=== PATIENT | male | born 1965 | race African-American/Black ===

== ENCOUNTER 2021-06-28 08:39 | Observation (INO) | payer SELFPAY ==
[~2021-06-28] VITALS: Ht 176.5 cm; Wt 63.0 kg
[~2021-06-28 08:39] MED LIST: NAPR-683 PO; PEG4000S8 PO; POTA20TA84 PO
[2021-06-28] MEDS ORDERED: IV NORMAL SALINE 1000ML BAG 1,000 ML IV SCH (09:30)
--- NOTE | 2021-06-28 09:32 | PHYS DOC ---
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 He states anytime he takes to take a drink of water cannot keep it down. He states this happens when he has been off of his omeprazole. He states he has had this exact pain before. He denies chest pain, shortness of breath, fever, cough, diarrhea, constipation, blood in his vomit, urinary symptom, syncope, dizziness, headache, numbness or tingling, focal weakness. He does have a history of a stroke with only left 2 fingers tingling for deficit, hypertension, hiatal hernia, GERD, smoking, marijuana, PCP, bradycardia. Patient is not vaccinated for Covid. 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 [] Eyes: Denies change in visual acuity. [] HENT: Denies nasal congestion or sore throat. [] Respiratory: Denies cough or shortness of breath. [] Cardiovascular: Denies chest pain or edema. [] GI: +Epigastric abdominal pain, +nausea, +vomiting, denies bloody stools or diarrhea. [] : Denies dysuria. [] Musculoskeletal: Denies back pain or joint pain. [] Integument: Denies rash. [] Neurologic: Denies headache, focal weakness or sensory changes. [] Endocrine: Denies polyuria or polydipsia. [] Lymphatic: Denies swollen glands. [] Psychiatric: Denies depression or anxiety. 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 [] HENT: Normocephalic, atraumatic, bilateral external ears normal, oropharynx moist, no oral exudates, nose normal. [] Eyes: PERRLA, EOMI, conjunctiva normal, no discharge. [] Neck: Normal range of motion, no tenderness, supple, no stridor. [] Cardiovascular:Heart rate regular rhythm, no murmur [] Lungs & Thorax: Bilateral breath sounds clear to auscultation [] Abdomen: Bowel sounds normal, soft, Epigastric tenderness, no masses, no pulsatile masses. [] Skin: Warm, dry, no erythema, no rash. [] Back: No tenderness, no CVA tenderness. [] Extremities: No tenderness, no cyanosis, no clubbing, ROM intact, no edema. [] Neurologic: Alert and oriented X 3, normal motor function, normal sensory function, no focal deficits noted. [] Psychologic: Affect normal, judgement normal, mood normal. [] ([facility] HYDROELECTRIC MECHANIC) Current Patient Data: Vital Signs: Vital Signs Date Time Temp Pulse Resp B/P (MAP) Pulse Ox O2 Delivery O2 Flow Rate FiO2 06/28/21 09:15 97.5 53 16 172/93 (119) 99 Room Air 97.5 ([facility] EKG: EK and read by Dr. Motta as sinus bradycardia and no STEMI ([facility]) Radiology/Procedures: Radiology/Procedures: [][facility] [address] [place] [address] IMAGING REPORT Signed PATIENT: YARA GORMAN LACCOUNT: [id number] : 1965 LOCATION: ER AGE: 55 SEX: M EXAM STATUS: REG ER ORD. PHYSICIAN: JACQUELINE BEAULIEU APRN REASON: EPIGASTRIC PAIN, VOMITING PROCEDURE: PORTABLE CHEST 1V XR CHEST 1V 06/28/2021 9:20 AM INDICATION: Epigastric pain, vomiting COMPARISON: 06/06/2019 TECHNIQUE: Portable frontal view of the chest is provided. FINDINGS: The cardiomediastinal silhouette is within normal limits. Lungs are clear. There are no significant pleural effusions. There is no pulmonary vascular congestion. No pneumothorax. No suspicious osseous abnormality. IMPRESSION: There is no acute cardiopulmonary process. Electronically signed by: Sharda Nunes MD (06/28/2021 9:37 AM) [id number] DICTATED and SIGNED BY: SHARDA NUNES MD DATE: 06/28/21 [id number] [facility] [address] [place] [address] IMAGING REPORT Signed PATIENT: YARA GORMAN LACCOUNT: [id number] : 1965 LOCATION: ER AGE: 55 SEX: M EXAM STATUS: REG ER ORD. PHYSICIAN: JACQUELINE BAEULIEU APRN REASON: tenderness, vomting PROCEDURE: CT ABD PELV W/ IV CONTRST ONLY INDICATION: Reason: tenderness, vomting / Spl. Instructions: IV omni 300 75 mls / History: COMPARISON: June 2019 TECHNIQUE: Axial CT images were obtained through the abdomen and pelvis with intravenous contrast. One or more of the following individualized dose reduction techniques were utilized for this examination: 1. Automated exposure control; 2. Adjustment of the mA and/or kV according to patient size; 3. Use of iterative reconstruction technique. FINDINGS: Vascular: Scattered calcific atherosclerosis. Hepatobiliary: Liver appears low density. This can be seen with fatty infiltration. The liver is also enlarged. Pancreas: No peripancreatic edema. Spleen: Spleen is small in size with calcified granulomas. Renal: No hydronephrosis. Bladder: Minimal urine within with mild prominence of the wall. Gastrointestinal: No dilated loops of bowel to suggest obstruction. The appendix is not well seen. There is a tubular structure seen adjacent to the cecum measuring 5 mm but difficult to tell if this is secondary to a vessel in the area or a nondilated appendix. Degenerative changes the spine with multilevel central canal and neural foraminal stenosis. This includes some disc protrusions as well as osteophyte formation at the vertebral body endplates with superimposed ligamentum flavum and facet hypertrophy IMPRESSION: * No evidence of bowel obstruction or hydronephrosis. * Liver appears enlarged and low density. Nonspecific but can be seen with fatty infiltration. * Calcific atherosclerosis. Electronically signed by: Windy Corbett MD (06/28/2021 12:39 PM) DESKTOP- [id number] DICTATED and SIGNED BY: WINDY CORBETT MD DATE: 06/28/21 [id number] (JACQUELINE BEAULIEU APRN) Course & Med Decision Making: Course & Med Decision Making Pertinent Labs and Imaging studies reviewed. (See chart for details) See HPI. Alert and oriented x4. Ambulatory steady gait. Speaks in full clear sentences. Skin pink warm and dry. Patient has epigastric tenderness but otherwise abdomen is soft nontender. Speaks in full clear sentences. Blood work generally unremarkable. Patient however cannot keep down any fluids. He was p.o. challenged here and vomited. Patient still having abdominal pain. He is given 8 mg of Zofran, Pepcid. He is also given 10 mg of Reglan. He is given 50meq of fentanyl. Patient is given 2 L of normal saline. CT abdomen pelvis shows no acute findings. Chest x-ray shows no acute findings. Patient admitted to hospitalist. [] (JACQUELINE BEAULIEU APRN) Dragon Disclaimer: Chance Disclaimer: This electronic medical record was generated, in whole or in part, using a voice recognition dictation system. (JACQUELINE BEAULIEU APRN) Departure Departure Impression: Primary Impression: Intractable vomiting Qualified Codes: R11.10 - Vomiting, unspecified Additional Impressions: Epigastric pain Marijuana use Disposition: ADMITTED INPATIENT Admitting Physician: ALEX (JACQUELINE BEAULIEU APRN) Condition: STABLE Referrals: NO PCP (PCP) Attending Signature Attending Signature I have reviewed the PA/INFORMATION SYSTEMS ADMINISTRATOR's note and plan of care. I was available for consult ation as needed during the patient's visit in the emergency department. I agree with the clinical impression, plan, and disposition. (PENELOPE MOTTA DO) JACQUELINE BEAULIEU APRN Jun 28, 2021 09:31 PENELOPE MOTTA DO Jun 29, 2021 13:59
--- NOTE | 2021-06-28 09:39 | RAD ---
XR CHEST 1V 06/28/2021 9:20 AM INDICATION: Epigastric pain, vomiting COMPARISON: 06/06/2019 TECHNIQUE: Portable frontal view of the chest is provided. FINDINGS: The cardiomediastinal silhouette is within normal limits. Lungs are clear. There are no significant pleural effusions. There is no pulmonary vascular congestion. No pneumothora x. No suspicious osseous abnormality. IMPRESSION: There is no acute cardiopulmonary process. Electronically signed by: Lynn Lee MD (06/28/2021 9:37 AM) [id number]
[2021-06-28] MEDS ORDERED: ONDANSETRON PF 4 MG/2 ML VIAL. IVP ONE ×2 (09:45→12:00)
[2021-06-28] MEDS ORDERED: FAMOTIDINE 20 MG/2 ML VIAL IVP ONE (09:45)
[2021-06-28 10:39] LABS: BASO # 0.1 x10^3/uL (0.0-0.2); BASO % 0 % (0-3); EOS # 0.1 x10^3/uL (0.0-0.7); EOS % 1 % (0-3); HEMATOCRIT 51.5 % (39.0-53.0); HEMOGLOBIN 17.5 g/dL (13.0-17.5); LYMPH # 1.3 x10^3/uL (1.0-4.8); LYMPH % 9 % (24-48); MEAN CORPUSCULAR HEMOGLOBIN 33 pg (25-35); MEAN CORPUSCULAR HGB CONC 34 g/dL (31-37); MEAN CORPUSCULAR VOLUME 97 fL (79-100); MONO # 1.2 x10^3/uL (0.0-1.1); MONO % 8 % (0-9); NEUT # 11.9 x10^3/uL (1.8-7.7); NEUT % 82 % (31-73); PLATELET COUNT 374 x10^3/uL (140-400); RED CELL DISTRIBUTION WIDTH 14.6 % (11.5-14.5); WHITE BLOOD COUNT 14.5 x10^3/uL (4.0-11.0)
--- NOTE | 2021-06-28 10:48 | EKG ---
[facility] [address] [place] [address] Test Date: 2021-06-28 Test Time: 09:36:50 Pat Name: YARA CHOUDHARYRodriguezLeann Department: Room: Gender: Public Weigher: : 1965 Requested By: JACQUELINE BEAULIEU Order Number: [id number] Reading MD: Measurements Intervals [place] Rate: 49 P: 72 MN: 178 QRS: 77 QRSD: 92 T: 74 QT: 442 QTc: 402 Interpretive Statements No previous ECG available for comparison
[2021-06-28 10:49] LABS: CALCIUM 10.3 mg/dL (8.5-10.1); CREATININE 1.1 mg/dL (0.7-1.3); GFR 84.1; POTASSIUM 4.4 mmol/L (3.5-5.1)
[2021-06-28 10:55] LABS: ALBUMIN 4.6 g/dL (3.4-5.0); ALBUMIN/GLOBULIN RATIO 1.2 (1.0-1.7); TOTAL BILIRUBIN 0.3 mg/dL (0.2-1.0); TOTAL PROTEIN 8.6 g/dL (6.4-8.2)
[2021-06-28] MEDS ORDERED: IV NORMAL SALINE 1000ML BAG 1,000 ML IV ONE (11:30)
[2021-06-28 11:41] LABS: BILIRUBIN,URINE NEGATIVE (NEG); CLARITY,URINE CLEAR; COLOR,URINE YELLOW; NITRITE,URINE NEGATIVE (NEG); PROTEIN,URINE 100 mg/dL (NEG-TRACE); UROBILINOGEN,URINE 0.2 mg/dL (0.2 mg/dL)
[2021-06-28] MEDS ORDERED: CONTRAST GIVEN. MC PRN (11:45)
[2021-06-28 11:54] LABS: BACTERIA,URINE 0 /HPF (0-FEW); RBC,URINE 0 /HPF (0-2); WBC,URINE RARE /HPF (0-4)
[2021-06-28 11:55] LABS: BARBITURATES NEG (NEG); BENZODIAZEPINES NEG (NEG); CANNABINOIDS POS (NEG); COCAINE NEG (NEG); METHADONE NEG (NEG); OPIATES NEG (NEG); PHENCYCLIDINE NEG (NEG)
[2021-06-28 11:59] LABS: AMPHETAMINE/METHAMPHETAMINE NEG (NEG)
[2021-06-28] MEDS ORDERED: fentaNYL PF VIAL 100 MCG/2 ML VIAL IVP ONE (12:00)
[2021-06-28] MEDS ORDERED: IOHEXOL 300 MG/ML 100ML VIAL. IV ONE (12:00)
--- NOTE | 2021-06-28 12:41 | RAD ---
INDICATION: Reason: tenderness, vomting / Spl. Instructions: IV omni 300 75 mls / History: COMPARISON: June 2019 TECHNIQUE: Axial CT images were obtained through the abdomen and pelvis with intravenous contrast. One or more of the following individualized dose reduction techniques were utilized for this examinat ion: 1. Automated exposure control; 2. Adjustment of the mA and/or kV according to patient size; 3 . Use of iterative reconstruction technique. FINDINGS: Vascular: Scattered calcific atherosclerosis. Hepatobiliary: Liver appears low density. This can be seen with fatty infiltration. The liver is also enlarged. Pancreas: No peripancreatic edema. Spleen: Spleen is small in size with calcified granulomas. Renal: No hydronephrosis. Bladder: Minimal urine within with mild prominence of the wall. Gastrointestinal: No dilated loops of bowel to suggest obstruction. The appendix is not well seen. There is a tubular structure seen adjacent to the cecum measuring 5 mm but difficult to tell if this is secondary to a vessel in the area or a nondilated appendix. Degenerative changes the spine with multilevel central canal and neural foraminal stenosis. This incl udes some disc protrusions as well as osteophyte formation at the vertebral body endplates with super imposed ligamentum flavum and facet hypertrophy IMPRESSION: * No evidence of bowel obstruction or hydronephrosis. * Liver appears enlarged and low density. Nonspecific but can be seen with fatty infiltration. * Calcific atherosclerosis. Electronically signed by: Bhanu Santana MD (06/28/2021 12:39 PM) DESKTOP-[id number]
[2021-06-28] MEDS ORDERED: METOCLOPRAMIDE HCL 10 MG/2 ML VIAL. IVP ONE (13:15)
[2021-06-28] MEDS ORDERED: diphenhydrAMINE 50 MG/ML VIAL IVP PRN ×2 (14:45)
[2021-06-28] MEDS ORDERED: hydrALAZINE 20 MG/ML VIAL. IVP PRN (14:45)
--- NOTE | 2021-06-28 14:57 | PDOC1 ---
History and Physical Date of Admission Date of Admission DATE: 06/28/21 TIME: 14:43 Identification/Chief Complaint Chief Complaint Nausea, vomiting Source Source: Patient History of Present Illness History of Present Illness Patient is 55-year-old male with past medical history of GERD, marijuana use, CVA, who presents to the ED with complaints of constant nausea and vomiting for the past 3 days. States he has a history of similar symptoms usually requiring admission to the hospital 12 times per year; usually admitted at . States he did have an episode of diarrhea 3 days ago when her symptoms started, but not since. He denies any chest pain, shortness of breath, cough, or headache. Labs on admission showed WBC 14.5, CBG 120, BNP 665, and UDS was positive for cannabis. Chest x-ray showed no acute cardiopulmonary process and CT abdomen with no evidence of bowel obstruction. He has not been vaccinated against COVID-19. Will admit patient for further medical management. Past Medical History Past Medical History HTN, CVA, GERD Past Surgical History Past Surgical History: No pertinent history Family History Family History: Hypertension Social History Smoke: 1 pack per day ALCOHOL: none Drugs: Marijuana Current Problem List Problem List Problems Medical Problems: (1) Epigastric pain Status: Acute (2) Intractable vomiting Status: Acute (3) Marijuana use Status: Acute Current Medications Current Medications Current Medications Sodium Chloride 1,000 ml @ 1,000 mls/hr Q1H IV Last administered on 06/28/21at 09:46; Start 06/28/21 at 09:30; Stop 06/28/21 at 10:29; Status DC Ondansetron HCl (Zofran) 4 mg 1X ONCE IVP Last administered on 06/28/21at 09:47; Start 06/28/21 at 09:45; Stop 06/28/21 at 09:46; Status DC Famotidine (Pepcid Vial) 20 mg 1X ONCE IVP Last administered on 06/28/21at 09:46; Start 06/28/21 at 09:45; Stop 06/28/21 at 09:46; Status DC Ondansetron HCl (Zofran) 4 mg 1X ONCE IVP Last administered on 06/28/21at 11:51; Start 06/28/21 at 12:00; Stop 06/28/21 at 12:01; Status DC Fentanyl Citrate (Fentanyl 2ml Vial) 50 mcg 1X ONCE IVP Last administered on 06/28/21at 11:51; Start 06/28/21 at 12:00; Stop 06/28/21 at 12:01; Status DC Sodium Chloride 1,000 ml @ 1,000 mls/hr 1X ONCE IV Last administered on 06/28/21at 11:52; Start 06/28/21 at 11:30; Stop 06/28/21 at 12:29; Status DC Iohexol (Omnipaque 300 Mg/ml) 75 ml 1X ONCE IV Last administered on 06/28/21at 12:03; Start 06/28/21 at 12:00; Stop 06/28/21 at 12:01; Status DC Info (CONTRAST GIVEN -- Rx MONITORING) 1 each PRN DAILY PRN MC SEE COMMENTS; Start 06/28/21 at 11:45; Stop 06/30/21 at 11:44 Metoclopramide HCl (Reglan Vial) 10 mg 1X ONCE IVP Last administered on 06/28/21at 14:20; Start 06/28/21 at 13:15; Stop 06/28/21 at 13:22; Status DC Active Scripts Active Naprosyn (Naproxen) 500 Mg Tablet 1 Tab PO BID Golytely Solution (Peg 3350/Na Sulf,Bicarb,Cl/Kcl) 4,000 Ml Soln.recon 4,000 Ml PO 1X Drink 1 cup every an hour until having a bowel movements K-Tab ER (Potassium Chloride) 20 Meq Tablet.er 20 Meq PO DAILY Golytely Solution (Peg 3350/Na Sulf,Bicarb,Cl/Kcl) 4,000 Ml Soln.recon 4,000 Ml PO 1X Drink 1 cup every an hour until having a bowel movements Allergies Allergies: Coded Allergies: No Known Drug Allergies (Unverified , 06/16/19) ROS Review of System GENERAL: No history of weight change, weakness or fevers. SKIN: No bruising, hair changes or rashes. EYES: No blurred, double or loss of vision. NOSE AND THROAT: No history of nosebleeds, hoarseness or sore throat. HEART: Denies chest pain, denies palpitations. LUNGS: Denies cough, hemoptysis, wheezing or shortness of breath. GASTROINTESTINAL: Nausea, vomiting, abdominal pain. GENITOURINARY: Denies dysuria, frequency, urgency, hematuria. NEUROLOGIC: Denies history of numbness, tingling, tremor or weakness. PSYCHIATRIC: Denies anxiety, denies depression. ENDOCRINE: No history of heat or cold intolerance, polyuria or polydipsia. EXTREMITIES: Denies muscle weakness, joint pain, pain on walking or stiffness. Physical Exam Physical Exam General: Alert, Oriented X3, Cooperative, No acute distress HEENT: PERRLA, EOMI Lungs: Clear to auscultation, Normal air movement Heart: RRR, no murmurs Cardiovascular: S1, S2 Abdomen: Epigastric tenderness. Normal bowel sounds, Soft. Extremities: No clubbing, No cyanosis Skin: No rashes, No significant lesion Neuro: Normal speech, Normal tone, Sensation intact Psych/Mental Status: Mental status NL, Mood NL Vitals Vitals Vital Signs Date Time Temp Pulse Resp B/P (MAP) Pulse Ox O2 Delivery O2 Flow Rate FiO2 06/28/21 11:06 54 183/88 (119) 99 Room Air 06/28/21 09:15 97.5 16 97.5 Labs Labs Laboratory Tests Test 06/28/21 10:25 06/28/21 11:30 White Blood Count 14.5 x10^3/uL (4.0-11.0) Red Blood Count 5.30 x10^6/uL (4.30-5.70) Hemoglobin 17.5 g/dL (13.0-17.5) Hematocrit 51.5 % (39.0-53.0) Mean Corpuscular Volume 97 fL (79-100) Mean Corpuscular Hemoglobin 33 pg (25-35) Mean Corpuscular Hemoglobin Concent 34 g/dL (31-37) Red Cell Distribution Width 14.6 % (11.5-14.5) Platelet Count 374 x10^3/uL (140-400) Neutrophils (%) (Auto) 82 % (31-73) Lymphocytes (%) (Auto) 9 % (24-48) Monocytes (%) (Auto) 8 % (0-9) Eosinophils (%) (Auto) 1 % (0-3) Basophils (%) (Auto) 0 % (0-3) Neutrophils # (Auto) 11.9 x10^3/uL (1.8-7.7) Lymphocytes # (Auto) 1.3 x10^3/uL (1.0-4.8) Monocytes # (Auto) 1.2 x10^3/uL (0.0-1.1) Eosinophils # (Auto) 0.1 x10^3/uL (0.0-0.7) Basophils # (Auto) 0.1 x10^3/uL (0.0-0.2) Sodium Level 138 mmol/L (136-145) Potassium Level 4.4 mmol/L (3.5-5.1) Chloride Level 98 mmol/L (98-107) Carbon Dioxide Level 29 mmol/L (21-32) Anion Gap 11 (6-14) Blood Urea Nitrogen 14 mg/dL (8-26) Creatinine 1.1 mg/dL (0.7-1.3) Estimated GFR (Cockcroft-Gault) 84.1 BUN/Creatinine Ratio 13 (6-20) Glucose Level 120 mg/dL (70-99) Calcium Level 10.3 mg/dL (8.5-10.1) Magnesium Level 2.2 mg/dL (1.8-2.4) Total Bilirubin 0.3 mg/dL (0.2-1.0) Aspartate Amino Transf (AST/SGOT) 21 U/L (15-37) Alanine Aminotransferase (ALT/SGPT) 34 U/L (16-63) Alkaline Phosphatase 100 U/L (46-116) Troponin I Quantitative < 0.017 ng/mL (0.000-0.055) UE-Iya-X-Type Natriuretic Peptide 665 pg/mL (0-124) Total Protein 8.6 g/dL (6.4-8.2) Albumin 4.6 g/dL (3.4-5.0) Albumin/Globulin Ratio 1.2 (1.0-1.7) Lipase 75 U/L (73-393) Urine Collection Type Unknown Urine Color Yellow Urine Clarity Clear Urine pH 6.0 (<5.0-8.0) Urine Specific [place] 1.025 (1.000-1.030) Urine Protein 100 mg/dL (NEG-TRACE) Urine Glucose (UA) Negative mg/dL (NEG) Urine Ketones (Stick) Trace mg/dL (NEG) Urine Blood Negative (NEG) Urine Nitrite Negative (NEG) Urine Bilirubin Negative (NEG) Urine Urobilinogen Dipstick 0.2 mg/dL (0.2 mg/dL) Urine Leukocyte Esterase Negative (NEG) Urine RBC 0 /HPF (0-2) Urine WBC Rare /HPF (0-4) Urine Squamous Epithelial Cells Mod /LPF Urine Bacteria 0 /HPF (0-FEW) Urine Opiates Screen Neg (NEG) Urine Methadone Screen Neg (NEG) Urine Barbiturates Neg (NEG) Urine Phencyclidine Screen Neg (NEG) Urine Amphetamine/Methamphetamine Neg (NEG) Urine Benzodiazepines Screen Neg (NEG) Urine Cocaine Screen Neg (NEG) Urine Cannabinoids Screen Pos (NEG) Urine Ethyl Alcohol Neg (NEG) Laboratory Tests Test 06/28/21 10:25 06/28/21 11:30 White Blood Count 14.5 x10^3/uL (4.0-11.0) Red Blood Count 5.30 x10^6/uL (4.30-5.70) Hemoglobin 17.5 g/dL (13.0-17.5) Hematocrit 51.5 % (39.0-53.0) Mean Corpuscular Volume 97 fL (79-100) Mean Corpuscular Hemoglobin 33 pg (25-35) Mean Corpuscular Hemoglobin Concent 34 g/dL (31-37) Red Cell Distribution Width 14.6 % (11.5-14.5) Platelet Count 374 x10^3/uL (140-400) Neutrophils (%) (Auto) 82 % (31-73) Lymphocytes (%) (Auto) 9 % (24-48) Monocytes (%) (Auto) 8 % (0-9) Eosinophils (%) (Auto) 1 % (0-3) Basophils (%) (Auto) 0 % (0-3) Neutrophils # (Auto) 11.9 x10^3/uL (1.8-7.7) Lymphocytes # (Auto) 1.3 x10^3/uL (1.0-4.8) Monocytes # (Auto) 1.2 x10^3/uL (0.0-1.1) Eosinophils # (Auto) 0.1 x10^3/uL (0.0-0.7) Basophils # (Auto) 0.1 x10^3/uL (0.0-0.2) Sodium Level 138 mmol/L (136-145) Potassium Level 4.4 mmol/L (3.5-5.1) Chloride Level 98 mmol/L (98-107) Carbon Dioxide Level 29 mmol/L (21-32) Anion Gap 11 (6-14) Blood Urea Nitrogen 14 mg/dL (8-26) Creatinine 1.1 mg/dL (0.7-1.3) Estimated GFR (Cockcroft-Gault) 84.1 BUN/Creatinine Ratio 13 (6-20) Glucose Level 120 mg/dL (70-99) Calcium Level 10.3 mg/dL (8.5-10.1) Magnesium Level 2.2 mg/dL (1.8-2.4) Total Bilirubin 0.3 mg/dL (0.2-1.0) Aspartate Amino Transf (AST/SGOT) 21 U/L (15-37) Alanine Aminotransferase (ALT/SGPT) 34 U/L (16-63) Alkaline Phosphatase 100 U/L (46-116) Troponin I Quantitative < 0.017 ng/mL (0.000-0.055) TD-Uqu-T-Type Natriuretic Peptide 665 pg/mL (0-124) Total Protein 8.6 g/dL (6.4-8.2) Albumin 4.6 g/dL (3.4-5.0) Albumin/Globulin Ratio 1.2 (1.0-1.7) Lipase 75 U/L (73-393) Urine Collection Type Unknown Urine Color Yellow Urine Clarity Clear Urine pH 6.0 (<5.0-8.0) Urine Specific [place] 1.025 (1.000-1.030) Urine Protein 100 mg/dL (NEG-TRACE) Urine Glucose (UA) Negative mg/dL (NEG) Urine Ketones (Stick) Trace mg/dL (NEG) Urine Blood Negative (NEG) Urine Nitrite Negative (NEG) Urine Bilirubin Negative (NEG) Urine Urobilinogen Dipstick 0.2 mg/dL (0.2 mg/dL) Urine Leukocyte Esterase Negative (NEG) Urine RBC 0 /HPF (0-2) Urine WBC Rare /HPF (0-4) Urine Squamous Epithelial Cells Mod /LPF Urine Bacteria 0 /HPF (0-FEW) Urine Opiates Screen Neg (NEG) Urine Methadone Screen Neg (NEG) Urine Barbiturates Neg (NEG) Urine Phencyclidine Screen Neg (NEG) Urine Amphetamine/Methamphetamine Neg (NEG) Urine Benzodiazepines Screen Neg (NEG) Urine Cocaine Screen Neg (NEG) Urine Cannabinoids Screen Pos (NEG) Urine Ethyl Alcohol Neg (NEG) Images Images PATIENT: YARA GORMAN: [id number] : 1965 LOCATION: ER AGE: 55 SEX: M EXAM STATUS: REG ER ORD. PHYSICIAN: JACQUELINE BEAULIEU APRN REASON: tenderness, vomting PROCEDURE: CT ABD PELV W/ IV CONTRST ONLY INDICATION: Reason: tenderness, vomting / Spl. Instructions: IV omni 300 75 mls / History: COMPARISON: June 2019 TECHNIQUE: Axial CT images were obtained through the abdomen and pelvis with intravenous contrast. One or more of the following individualized dose reduction techniques were util ized for this examination: 1. Automated exposure control; 2. Adjustment of the mA and/or kV according to patient size; 3. Use of iterative reconstruction technique. FINDINGS: Vascular: Scattered calcific atherosclerosis. Hepatobiliary: Liver appears low density. This can be seen with fatty infiltration. The liver is also enlarged. Pancreas: No peripancreatic edema. Spleen: Spleen is small in size with calcified granulomas. Renal: No hydronephrosis. Bladder: Minimal urine within with mild prominence of the wall. Gastrointestinal: No dilated loops of bowel to suggest obstruction. The appendix is not well seen. There is a tubular structure seen adjacent to the cecum measuring 5 mm but difficult to tell if this is secondary to a vessel in the area or a nondilated appendix. Degenerative changes the spine with multilevel central canal and neural foraminal stenosis. This includes some disc protrusions as well as osteophyte formation at the vertebral body endplates with superimposed ligamentum flavum and facet hypertrophy IMPRESSION: * No evidence of bowel obstruction or hydronephrosis. * Liver appears enlarged and low density. Nonspecific but can be seen with fatty infiltration. * Calcific atherosclerosis. PATIENT: YARA GORMAN LACCOUNT: [id number] : 1965 LOCATION: ER AGE: 55 SEX: M EXAM STATUS: REG ER ORD. PHYSICIAN: JACQUELINE BEAULIEU APRN REASON: tenderness, vomting PROCEDURE: CT ABD PELV W/ IV CONTRST ONLY INDICATION: Reason: tenderness, vomting / Spl. Instructions: IV omni 300 75 mls / History: COMPARISON: June 2019 TECHNIQUE: Axial CT images were obtained through the abdomen and pelvis with intravenous contrast. One or more of the following individualized dose reduction techniques were utilized for this examination: 1. Automated exposure control; 2. Adjustment of the mA and/or kV according to patient size; 3. Use of iterative reconstruction technique. FINDINGS: Vascular: Scattered calcific atherosclerosis. Hepatobiliary: Liver appears low density. This can be seen with fatty infiltration. The liver is also enlarged. Pancreas: No peripancreatic edema. Spleen: Spleen is small in size with calcified granulomas. Renal: No hydronephrosis. Bladder: Minimal urine within with mild prominence of the wall. Gastrointestinal: No dilated loops of bowel to suggest obstruction. The appendix is not well seen. There is a tubular structure seen adjacent to the cecum measuring 5 mm but difficult to tell if this is secondary to a vessel in the area or a nondilated appendix. Degenerative changes the spine with multilevel central canal and neural foraminal stenosis. This includes some disc protrusions as well as osteophyte formation at the vertebral body endplates with superimposed ligamentum flavum and facet hypertrophy IMPRESSION: * No evidence of bowel obstruction or hydronephrosis. * Liver appears enlarged and low density. Nonspecific but can be seen with fatty infiltration. * Calcific atherosclerosis. VTE Prophylaxis Ordered VTE Prophylaxis Devices: No VTE Pharmacological Prophylaxi: Yes Assessment/Plan Assessment/Plan Intractable nausea and vomiting Accelerated hypertension History CVA Plan: We will meet patient with IV famotidine and IV PPI daily Recommend bowel rest with intermittent trials of water Symptoms likely secondary to uncontrolled GERD or cannabis induced hyperemesis FEN - Clear Liquids PPX - Lovenox FULL CODE Dispo - inpatient for above Patient has not named surrogate decision-maker Justifications for Admission Other Justification RADHA GEORGE MD Jun 28, 2021 14:57
[2021-06-28] MEDS ORDERED: CALCIUM CARBONATE 500 MG TAB.CHEW PO PRN (15:00)
[2021-06-28] MEDS ORDERED: MAG HYDROX/ALUMINUM HYD/SIMETH 30 ML ORAL.SUSP PO PRN (15:00)
[2021-06-28] MEDS ORDERED: PROCHLORPERAZINE 10 MG/2 ML VIAL. IVP PRN (15:00)
[2021-06-28] MEDS ORDERED: ACETAMINOPHEN 325 MG TABLET. PO PRN (15:00)
[2021-06-28] MEDS ORDERED: PANTOPRAZOLE IV PUSH 40 MG VIAL. IVP ONE (15:00)
[2021-06-28 15:31] LABS: INFLUENZA A PATIENT NEGATIVE (NEGATIVE); INFLUENZA B PATIENT NEGATIVE (NEGATIVE)
[2021-06-28] MEDS ORDERED: OMEP40CA7 PO (15:36)
[2021-06-28] MEDS ORDERED: FOLI0.4T5 PO (15:36)
[2021-06-28] MEDS ORDERED: FLU VACC QUAD 21-22 (6MOS+) PF 0.5 ML SYRINGE. VAX IM ONE (15:45)
[2021-06-28] MEDS: ONDANSETRON PF 4 MG/2 ML VIAL. IVP PRN (15:53)
[2021-06-28] MEDS: FAMOTIDINE 20 MG/2 ML VIAL IVP SCH ×2 (15:53→21:58)
[2021-06-28] MEDS: ENOXAPARIN 40 MG/0.4 ML SYRINGE. SQ SCH (15:54)
[2021-06-28] MEDS: MORPHINE SULFATE 4 MG/ML INJ. IV PRN ×2 (18:05→21:58)
[2021-06-28 19:00] VITALS: BP 134/77
[2021-06-28 23:00] VITALS: BP 111/67
[2021-06-29 03:00] VITALS: BP 131/74
[2021-06-29 07:00] VITALS: BP 116/55
[2021-06-29] MEDS: FAMOTIDINE 20 MG/2 ML VIAL IVP SCH ×2 (08:15→21:16)
[2021-06-29] MEDS: PANTOPRAZOLE IV PUSH 40 MG VIAL. IVP SCH (08:15)
[2021-06-29] MEDS: MORPHINE SULFATE 4 MG/ML INJ. IV PRN (08:28)
--- NOTE | 2021-06-29 08:42 | PDOC ---
[facility] PROGRESS NOTE Date of Service DOS: DATE: 06/29/21 TIME: 08:37 Chief Complaint Chief Complaint Intractable nausea and vomiting Accelerated hypertension History CVA Plan: We will meet patient with IV famotidine and IV PPI daily Recommend bowel rest with intermittent trials of water Symptoms likely secondary to uncontrolled GERD or cannabis induced hyperemesis FEN - Clear Liquids PPX - Lovenox FULL CODE Dispo - inpatient for above Patient has not named surrogate decision-maker History of Present Illness History of Present Illness Patient is 55-year-old male with past medical history of GERD, marijuana use, CVA, who presents to the ED with complaints of constant nausea and vomiting for the past 3 days. States he has a history of similar symptoms usually requiring admission to the hospital 12 times per year; usually admitted at . States he did have an episode of diarrhea 3 days ago when her symptoms started, but not since. He denies any chest pain, shortness of breath, cough, or headache. Labs on admission showed WBC 14.5, CBG 120, BNP 665, and UDS was positive for cannabis. Chest x-ray showed no acute cardiopulmonary process and CT abdomen with no evidence of bowel obstruction. He has not been vaccinated against COVID-19. Will admit patient for further medical management. 06/29/2021: Pain and nausea improved with medications. Denies any vomiting overnight. Encouraged clear liquid diet. Will continue supportive care anticipate discharge likely tomorrow. Vitals/I&O Vitals/I&O: Vital Signs Date Time Temp Pulse Resp B/P (MAP) Pulse Ox O2 Delivery O2 Flow Rate FiO2 06/29/21 08:28 Room Air 06/29/21 03:00 98.4 60 18 131/74 (93) 97 98.4 I & O 06/28/21 06/28/21 06/29/21 15:00 23:00 07:00 Intake Total 0 ml Balance 0 ml Physical Exam General: Alert, mild distress Heart: Regular rate Lungs: Clear Abdomen: Soft, Other (Epigastric tenderness) Extremities: No clubbing, No cyanosis Skin: No rashes, No breakdown Labs Labs: Laboratory Tests Test 06/28/21 10:25 06/28/21 11:30 06/28/21 14:45 White Blood Count 14.5 x10^3/uL (4.0-11.0) Red Blood Count 5.30 x10^6/uL (4.30-5.70) Hemoglobin 17.5 g/dL (13.0-17.5) Hematocrit 51.5 % (39.0-53.0) Mean Corpuscular Volume 97 fL (79-100) Mean Corpuscular Hemoglobin 33 pg (25-35) Mean Corpuscular Hemoglobin Concent 34 g/dL (31-37) Red Cell Distribution Width 14.6 % (11.5-14.5) Platelet Count 374 x10^3/uL (140-400) Neutrophils (%) (Auto) 82 % (31-73) Lymphocytes (%) (Auto) 9 % (24-48) Monocytes (%) (Auto) 8 % (0-9) Eosinophils (%) (Auto) 1 % (0-3) Basophils (%) (Auto) 0 % (0-3) Neutrophils # (Auto) 11.9 x10^3/uL (1.8-7.7) Lymphocytes # (Auto) 1.3 x10^3/uL (1.0-4.8) Monocytes # (Auto) 1.2 x10^3/uL (0.0-1.1) Eosinophils # (Auto) 0.1 x10^3/uL (0.0-0.7) Basophils # (Auto) 0.1 x10^3/uL (0.0-0.2) Sodium Level 138 mmol/L (136-145) Potassium Level 4.4 mmol/L (3.5-5.1) Chloride Level 98 mmol/L (98-107) Carbon Dioxide Level 29 mmol/L (21-32) Anion Gap 11 (6-14) Blood Urea Nitrogen 14 mg/dL (8-26) Creatinine 1.1 mg/dL (0.7-1.3) Estimated GFR (Cockcroft-Gault) 84.1 BUN/Creatinine Ratio 13 (6-20) Glucose Level 120 mg/dL (70-99) Calcium Level 10.3 mg/dL (8.5-10.1) Magnesium Level 2.2 mg/dL (1.8-2.4) Total Bilirubin 0.3 mg/dL (0.2-1.0) Aspartate Amino Transf (AST/SGOT) 21 U/L (15-37) Alanine Aminotransferase (ALT/SGPT) 34 U/L (16-63) Alkaline Phosphatase 100 U/L (46-116) Troponin I Quantitative < 0.017 ng/mL (0.000-0.055) KG-Cyz-W-Type Natriuretic Peptide 665 pg/mL (0-124) Total Protein 8.6 g/dL (6.4-8.2) Albumin 4.6 g/dL (3.4-5.0) Albumin/Globulin Ratio 1.2 (1.0-1.7) Lipase 75 U/L (73-393) Urine Collection Type Unknown Urine Color Yellow Urine Clarity Clear Urine pH 6.0 (<5.0-8.0) Urine Specific [place] 1.025 (1.000-1.030) Urine Protein 100 mg/dL (NEG-TRACE) Urine Glucose (UA) Negative mg/dL (NEG) Urine Ketones (Stick) Trace mg/dL (NEG) Urine Blood Negative (NEG) Urine Nitrite Negative (NEG) Urine Bilirubin Negative (NEG) Urine Urobilinogen Dipstick 0.2 mg/dL (0.2 mg/dL) Urine Leukocyte Esterase Negative (NEG) Urine RBC 0 /HPF (0-2) Urine WBC Rare /HPF (0-4) Urine Squamous Epithelial Cells Mod /LPF Urine Bacteria 0 /HPF (0-FEW) Urine Opiates Screen Neg (NEG) Urine Methadone Screen Neg (NEG) Urine Barbiturates Neg (NEG) Urine Phencyclidine Screen Neg (NEG) Urine Amphetamine/Methamphetamine Neg (NEG) Urine Benzodiazepines Screen Neg (NEG) Urine Cocaine Screen Neg (NEG) Urine Cannabinoids Screen Pos (NEG) Urine Ethyl Alcohol Neg (NEG) Influenza Type A Antigen Negative (NEGATIVE) Influenza Type B Antigen Negative (NEGATIVE) Assessment and Plan Assessmemt and Plan Problems Medical Problems: (1) Epigastric pain Status: Acute (2) Intractable vomiting Status: Acute (3) Marijuana use Status: Acute Comment Review of Relevant I have reviewed the following items xavier (where applicable) has been applied. Medications: Current Medications Medications (Trade) Dose Ordered Sig/Hui Route PRN Reason Start Time Stop Time Status Last Admin Dose Admin Sodium Chloride 1,000 ml @ 1,000 mls/hr Q1H IV 06/28/21 09:30 06/28/21 10:29 DC 06/28/21 09:46 Ondansetron HCl (Zofran) 4 mg 1X ONCE IVP 06/28/21 09:45 06/28/21 09:46 DC 06/28/21 09:47 Famotidine (Pepcid Vial) 20 mg 1X ONCE IVP 06/28/21 09:45 06/28/21 09:46 DC 06/28/21 09:46 Ondansetron HCl (Zofran) 4 mg 1X ONCE IVP 06/28/21 12:00 06/28/21 12:01 DC 06/28/21 11:51 Fentanyl Citrate (Fentanyl 2ml Vial) 50 mcg 1X ONCE IVP 06/28/21 12:00 06/28/21 12:01 DC 06/28/21 11:51 Sodium Chloride 1,000 ml @ 1,000 mls/hr 1X ONCE IV 06/28/21 11:30 06/28/21 12:29 DC 06/28/21 11:52 Iohexol (Omnipaque 300 Mg/ml) 75 ml 1X ONCE IV 06/28/21 12:00 06/28/21 12:01 DC 06/28/21 12:03 Metoclopramide HCl (Reglan Vial) 10 mg 1X ONCE IVP 06/28/21 13:15 06/28/21 13:22 DC 06/28/21 14:20 Pantoprazole Sodium (PROTONIX VIAL for IV PUSH) 40 mg 1X ONCE IVP 06/28/21 15:00 06/28/21 15:01 DC 06/28/21 15:53 Pantoprazole Sodium (PROTONIX VIAL for IV PUSH) 40 mg DAILYAC IVP 06/29/21 07:30 06/29/21 08:15 Morphine Sulfate (Morphine Sulfate) 4 mg PRN Q4HRS PRN IV MODERATE TO SEVERE PAIN 06/28/21 15:00 06/29/21 08:28 Famotidine (Pepcid Vial) 20 mg BID IVP 06/28/21 15:00 06/29/21 08:15 Ondansetron HCl (Zofran) 4 mg PRN Q6HRS PRN IVP NAUSEA/VOMITING 06/28/21 15:00 06/28/21 15:53 Enoxaparin Sodium (Lovenox 40mg Syringe) 40 mg Q24H SQ 06/28/21 15:00 06/28/21 15:54 Influenza Virus Vaccine Quadrival (Flulaval Quad Syringe) 0.5 ml ONCE ONCE VAX IM 06/28/21 15:45 06/28/21 15:48 DC 06/28/21 18:06 Justifications for Admission General Conditions Other justification for admit: Intractable nausea and vomiting Other Justification RADHA GEORGE MD Jun 29, 2021 08:41
[2021-06-29 11:00] VITALS: BP 130/68
--- NOTE | 2021-06-29 11:20 | NUR ---
SW following. Discussed with RN, pt homeless, room air, adat, COVID-19 negative. Flu negative. Med Assist following for self pay status. SW will continue to follow.
[2021-06-29] MEDS: ONDANSETRON PF 4 MG/2 ML VIAL. IVP PRN ×2 (12:35→21:16)
[2021-06-29 15:00] VITALS: BP 135/74
[2021-06-29] MEDS: ENOXAPARIN 40 MG/0.4 ML SYRINGE. SQ SCH (16:14)
[2021-06-29 19:47] VITALS: BP 123/65
[2021-06-29 23:32] VITALS: BP 128/68
--- NOTE | 2021-06-30 02:37 | NUR ---
Patient continues having bradycardia on the monitor, HR as low as 37 noted. RN woke patient up he is asymptomatic. Patient states he is aware of this and it has been doing this for years, patient states that since he started working out his HR has been low.
[2021-06-30 03:43] VITALS: BP 156/93
[2021-06-30 07:00] VITALS: BP 112/71
[2021-06-30] MEDS: PANTOPRAZOLE IV PUSH 40 MG VIAL. IVP SCH (07:59)
[2021-06-30] MEDS: FAMOTIDINE 20 MG/2 ML VIAL IVP SCH (10:30)
--- NOTE | 2021-06-30 10:36 | PDOC ---
[employer] PROGRESS NOTE Date of Service DOS: DATE: 06/30/21 TIME: 10:35 Chief Complaint Chief Complaint Intractable nausea and vomiting Accelerated hypertension History CVA Plan: We will meet patient with IV famotidine and IV PPI daily Recommend bowel rest with intermittent trials of water Symptoms likely secondary to uncontrolled GERD or cannabis induced hyperemesis FEN - Clear Liquids PPX - Lovenox FULL CODE Dispo - inpatient for above Patient has not named surrogate decision-maker History of Present Illness History of Present Illness Patient is 55-year-old male with past medical history of GERD, marijuana use, CVA, who presents to the ED with complaints of constant nausea and vomiting for the past 3 days. States he has a history of similar symptoms usually requiring admission to the hospital 12 times per year; usually admitted at . States he did have an episode of diarrhea 3 days ago when her symptoms started, but not since. He denies any chest pain, shortness of breath, cough, or headache. Labs on admission showed WBC 14.5, CBG 120, BNP 665, and UDS was positive for cannabis. Chest x-ray showed no acute cardiopulmonary process and CT abdomen with no evidence of bowel obstruction. He has not been vaccinated against COVID-19. Will admit patient for further medical management. 06/29/2021: Pain and nausea improved with medications. Denies any vomiting overnight. Encouraged clear liquid diet. Will continue supportive care anticipate discharge likely tomorrow. 06/30/2021: Reports improvement in his nausea. Tolerating his regular diet without vomiting. Discharge patient PPI and Zofran. Greater than 30 minutes spent managing the discharge of this patient. Vitals/I&O Vitals/I&O: Vital Signs Date Time Temp Pulse Resp B/P (MAP) Pulse Ox O2 Delivery O2 Flow Rate FiO2 06/30/21 08:00 Room Air 06/30/21 07:00 98.8 52 18 112/71 (85) 95 98.8 I & O 06/29/21 06/29/21 06/30/21 15:00 23:00 07:00 Intake Total 0 ml 240 ml Output Total 600 ml Balance -600 ml 240 ml Physical Exam General: Alert, No acute distress Heart: Regular rate Lungs: Clear Abdomen: Soft, Other (Epigastric tenderness) Extremities: No clubbing, No cyanosis Skin: No rashes, No breakdown Assessment and Plan Assessmemt and Plan Problems Medical Problems: (1) Epigastric pain Status: Acute (2) Intractable vomiting Status: Acute (3) Marijuana use Status: Acute Comment Review of Relevant I have reviewed the following items xavier (where applicable) has been applied. Justifications for Admission General Conditions Other justification for admit: Intractable nausea and vomiting Other Justification RADHA GEORGE MD Jun 30, 2021 10:35
--- NOTE | 2021-06-30 10:37 | PDOC3 ---
Discharge Summary Visit Information Date of Admission: Jun 28, 2021 Date of Discharge: Jun 30, 2021 Final Diagnosis Problems Medical Problems: (1) Epigastric pain Status: Acute (2) Intractable vomiting Status: Acute (3) Marijuana use Status: Acute Brief Hospital Course Allergies Allergies Coded Allergies Type Severity Reaction Last Updated Verified No Known Drug Allergies 06/16/19 No Vital Signs Vital Signs Date Time Temp Pulse Resp B/P (MAP) Pulse Ox O2 Delivery O2 Flow Rate FiO2 06/30/21 08:00 Room Air 06/30/21 07:00 98.8 52 18 112/71 (85) 95 98.8 Lab Results Laboratory Tests Test 06/28/21 11:30 06/28/21 14:45 Urine Collection Type Unknown Urine Color Yellow Urine Clarity Clear Urine pH 6.0 (<5.0-8.0) Urine Specific [place] 1.025 (1.000-1.030) Urine Protein 100 mg/dL (NEG-TRACE) Urine Glucose (UA) Negative mg/dL (NEG) Urine Ketones (Stick) Trace mg/dL (NEG) Urine Blood Negative (NEG) Urine Nitrite Negative (NEG) Urine Bilirubin Negative (NEG) Urine Urobilinogen Dipstick 0.2 mg/dL (0.2 mg/dL) Urine Leukocyte Esterase Negative (NEG) Urine RBC 0 /HPF (0-2) Urine WBC Rare /HPF (0-4) Urine Squamous Epithelial Cells Mod /LPF Urine Bacteria 0 /HPF (0-FEW) Urine Opiates Screen Neg (NEG) Urine Methadone Screen Neg (NEG) Urine Barbiturates Neg (NEG) Urine Phencyclidine Screen Neg (NEG) Urine Amphetamine/Methamphetamine Neg (NEG) Urine Benzodiazepines Screen Neg (NEG) Urine Cocaine Screen Neg (NEG) Urine Cannabinoids Screen Pos (NEG) Urine Ethyl Alcohol Neg (NEG) Influenza Type A Antigen Negative (NEGATIVE) Influenza Type B Antigen Negative (NEGATIVE) SARS-CoV-2 RNA (PENELOPE) Negative (Negative) SARS-CoV-2 Antigen (Rapid) Negative (NEGATIVE) Brief Hospital Course Intractable nausea and vomiting Accelerated hypertension History CVA Plan: We will meet patient with IV famotidine and IV PPI daily Recommend bowel rest with intermittent trials of water Symptoms likely secondary to uncontrolled GERD or cannabis induced hyperemesis FEN - Clear Liquids PPX - Lovenox FULL CODE Dispo - inpatient for above Patient has not named surrogate decision-maker History of Present Illness Patient is 55-year-old male with past medical history of GERD, marijuana use, CVA, who presents to the ED with complaints of constant nausea and vomiting for the past 3 days. States he has a history of similar symptoms usually requiring admission to the hospital 12 times per year; usually admitted at . States he did have an episode of diarrhea 3 days ago when her symptoms started, but not since. He denies any chest pain, shortness of breath, cough, or headache. Labs on admission showed WBC 14.5, CBG 120, BNP 665, and UDS was positive for cannabis. Chest x-ray showed no acute cardiopulmonary process and CT abdomen with no evidence of bowel obstruction. He has not been vaccinated against COVID-19. Will admit patient for further medical management. 06/29/2021: Pain and nausea improved with medications. Denies any vomiting overnight. Encouraged clear liquid diet. Will continue supportive care anticipate discharge likely tomorrow. 06/30/2021: Reports improvement in his nausea. Tolerating his regular diet without vomiting. Discharge patient PPI and Zofran. Greater than 30 minutes spent managing the discharge of this patient. Discharge Information Condition at Discharge: Improved Disposition/Orders: D/C to Home Scheduled Folic Acid (Folic Acid) 0.4 Mg Tablet, 1 MG PO DAILY for SUPPLEMENT, (Reported) Entered as Reported by: JERMAIN WELCH on 06/28/211535 Last Action: New Order on 06/28/211535 by JERMAIN WELCH Naproxen (Naprosyn) 500 Mg Tablet, 1 TAB PO BID for pain, #20 Prescribed by: SHARI BARRIOS MD on 06/16/19 1226 Omeprazole (Omeprazole) 40 Mg Capsule.dr, 40 MG PO DAILY for GERD, (Reported) Entered as Reported by: JERMAIN WELCH on 06/28/211535 Last Action: New Order on 06/28/211535 by JERMAIN WELCH Peg 3350/Na Sulf,Bicarb,Cl/Kcl (Golytely Solution) 4,000 Ml Soln.recon, 4,000 ML PO 1X, #1 Drink 1 cup every an hour until having a bowel movements Prescribed by: SHARI BARRIOS MD on 06/16/19 1224 Peg 3350/Na Sulf,Bicarb,Cl/Kcl (Golytely Solution) 4,000 Ml Soln.recon, 4,000 ML PO 1X, #1 Drink 1 cup every an hour until having a bowel movements Prescribed by: SHARI BARRIOS MD on 06/16/19 1226 Potassium Chloride (K-Tab ER) 20 Meq Tablet.er, 20 MEQ PO DAILY, #10 Prescribed by: SHARI BARRIOS MD on 06/16/19 1224 Justicifation of Admission Dx: Justifications for Admission: Justification of Admission Dx: Yes RADHA GEORGE MD Jun 30, 2021 10:37
[2021-06-30 11:00] VITALS: BP 108/69
--- NOTE | 2021-06-30 11:38 | NUR ---
SW following. Discussed with RN, discharge order for home with self care. Pt staying with friends. Med Assist following for self pay status.
--- NOTE | 2021-06-30 13:00 | NUR ---
Discharge Note: YARA GORMAN Discharge instructions and discharge home medications reviewed with Patient and a copy given. All questions have been answered and understanding verbalized. The following instructions and handouts were given: discharge instructions, education and follow up recommendations. Discontinued lines and drains: Peripheral IV discontinued intact. Patient discharged to Home or Self Care with Friend via Ambulated
--- NOTE | 2021-08-19 09:38 | NUR ---
Late entry : NaCl 1000 ml bolus started on 06/28/21 at 0946, stopped at 1045. NaCl 1000 ml bolus started on 06/28/21 at 1152, stopped at 1252.
== END 2021-06-30 13:00 | disposition home or self-care (01) ==
LOC: ER 08:39 → 5 NORTH 13:16
PROVIDERS: ADMIT Family Medicine; ATTEND Family Medicine
DX: R11.2 Nausea with vomiting, unspecified (principal); R10.13 Epigastric pain; Z20.822 Contact with and (suspected) exposure to COVID-19; F12.90 Cannabis use, unspecified, uncomplicated; I10 Essential (primary) hypertension; K21.9 Gastro-esophageal reflux disease without esophagitis; R19.7 Diarrhea, unspecified; R00.1 Bradycardia, unspecified; F17.200 Nicotine dependence, unspecified, uncomplicated; K44.9 Diaphragmatic hernia without obstruction or gangrene; Z86.73 Personal history of transient ischemic attack (TIA), and cerebral infarction without residual deficits; Z82.49 Family history of ischemic heart disease and other diseases of the circulatory system; Z59.0 Homelessness; Z23 Encounter for immunization
CPT/HCPCS: 36415; 71045; 74177; 80053; 80307; 81001; 83690; 83735; 83880; 84484; 85025; 87426; 87804; 90471; 90686; 93005; 96361; 96372; 96374; 96375; 96376; 99285; 99406; C9113; G0378; J1650; J2270; J2405; J2765; J3010; J3490; J7030; Q9967; U0003; U0005; G0379

== ENCOUNTER 2021-09-21 09:59 | Emergency (ER) | payer SELFPAY ==
[~2021-09-21] VITALS: Ht 175.3 cm; Wt 56.7 kg
[~2021-09-21 09:59] MED LIST changes: +FOLI0.4T5 PO; +OMEP40CA7 PO
--- NOTE | 2021-09-21 10:55 | PHYS DOC ---
Past Medical History Past Medical History: Hypertension, Stroke Additional Past Medical Histor: BRADYCARDIA Past Surgical History: No Surgical History Smoking Status: Current Every Day Smoker Additional Information: 0.5 PPD Alcohol Use: Occasionally Drug Use: Marijuana General Adult EDM: Chief Complaint: ABDOMINAL PAIN HPI: HPI: Patient is a 55 year old male presents to the emergency department complaining of feeling cold reporting that he is homeless, patient states he has abdominal discomfort with nausea and vomiting this morning. Patient reports his abdominal pain that radiates up into his chest. Patient reports his pain a 10 out of 10. Patient describes his pain as a burning sensation. Patient denies dizziness, syncopal episodes or near syncopal episodes, denies visual disturbances. Patient denies recent fever or chills. Patient denies throat pain nasal or chest congestion. Patient denies cough, fever or chills. Patient reports he has received the COVID-19 vaccination series along with a flu vaccination this year. Patient denies other physical complaints or physical concerns. Review of Systems: Review of Systems: 14 body systems of review of systems have been reviewed. See HPI for pertinent positives and negative responses, otherwise all other systems are negative, nonpertinent or noncontributory. Constitutional: Negative except as outlined in HPI above. Skin: Negative except as outlined in HPI above. Eyes: Negative except as outlined in HPI above. HENT: Negative except as outlined in HPI above. Respiratory: Negative except as outlined in HPI above. Cardiovascular: Negative except as outlined in HPI above. GI: Negative except as outlined in HPI above. : Negative except as outlined in HPI above. Musculoskeletal: Negative except as outlined in HPI above. Integument: Negative except as outlined in HPI above. Neurologic: Negative except as outlined in HPI above. Endocrine: Negative except as outlined in HPI above. Lymphatic: Negative except as outlined in HPI above. Psychiatric: Negative except as outlined in HPI above. Heart Score: C/O Chest Pain: No Risk Factors: Risk Factors: DM, Current or recent (<one month) smoker, HTN, HLP, family history of CAD, obesity. Risk Scores: Score 0 - 3: 2.5% MACE over next 6 weeks - Discharge Home Score 4 - 6: 20.3% MACE over next 6 weeks - Admit for Clinical Observation Score 7 - 10: 72.7% MACE over next 6 weeks - Early Invasive Strategies Allergies: Allergies: Allergies Coded Allergies Type Severity Reaction Last Updated Verified No Known Drug Allergies 06/16/19 No Physical Exam: PE: Constitutional: Well developed, well nourished, no acute distress, non-toxic appearance. 55-year-old male in no apparent distress. HENT: Normocephalic, atraumatic. Eyes: Conjunctiva normal, no discharge. Neck: Normal range of motion, no stridor. Cardiovascular: No cyanosis appreciated, distal cap refill less than 2 seconds. RRR to auscultation. Lungs & Thorax: Patient is in no respiratory distress, no audible adventitious lung sounds appreciated. Lung sounds clear to auscultation all lung brown. Abdomen: Nontender, no abnormalities noted. No abnormal skin discoloration of the abdomen, no surgical scars present, pain to palpation of epigastric area, normal bowel sounds to auscultation all 4 quadrants. Negative Weller's sign, negative psoas sign, negative straight leg test raise, negative McBurney's point tenderness, no rebound tenderness appreciated. Skin: Warm, dry, no erythema, no rash. Back: No tenderness, no deformities. No left-sided or right-sided CVA TTP. Extremities: No tenderness, no cyanosis, no clubbing, ROM intact, no edema. Neurologic: Alert and oriented X 3, normal motor function, normal sensory function, no focal deficits noted. Psychologic: Affect normal, judgement normal, mood normal. Current Patient Data: Labs: Laboratory Tests Test 09/21/21 11:25 09/21/21 12:35 09/21/21 12:50 White Blood Count 13.2 x10^3/uL Red Blood Count 5.17 x10^6/uL Hemoglobin 16.8 g/dL Hematocrit 49.6 % Mean Corpuscular Volume 96 fL Mean Corpuscular Hemoglobin 32 pg Mean Corpuscular Hemoglobin Concent 34 g/dL Red Cell Distribution Width 13.5 % Platelet Count 601 x10^3/uL Neutrophils (%) (Auto) 88 % Lymphocytes (%) (Auto) 7 % Monocytes (%) (Auto) 5 % Eosinophils (%) (Auto) 0 % Basophils (%) (Auto) 0 % Neutrophils # (Auto) 11.6 x10^3/uL Lymphocytes # (Auto) 0.9 x10^3/uL Monocytes # (Auto) 0.7 x10^3/uL Eosinophils # (Auto) 0.0 x10^3/uL Basophils # (Auto) 0.0 x10^3/uL Urine Collection Type Unknown Urine Color Yellow Urine Clarity Clear Urine pH 6.0 Urine Specific [place] >=1.030 Urine Protein >=300 mg/dL Urine Glucose (UA) Negative mg/dL Urine Ketones (Stick) Trace mg/dL Urine Blood Negative Urine Nitrite Negative Urine Bilirubin Negative Urine Urobilinogen Dipstick 0.2 mg/dL Urine Leukocyte Esterase Negative Urine RBC 0 /HPF Urine WBC 1-4 /HPF Urine Squamous Epithelial Cells Few /LPF Urine Amorphous Sediment Present /HPF Urine Bacteria 0 /HPF Urine Mucus Marked /LPF Sodium Level 140 mmol/L Potassium Level 4.1 mmol/L Chloride Level 99 mmol/L Carbon Dioxide Level 29 mmol/L Anion Gap 12 Blood Urea Nitrogen 20 mg/dL Creatinine 1.0 mg/dL Estimated GFR (Cockcroft-Gault) 93.9 BUN/Creatinine Ratio 20 Glucose Level 138 mg/dL Calcium Level 9.9 mg/dL Total Bilirubin 0.3 mg/dL Aspartate Amino Transf (AST/SGOT) 22 U/L Alanine Aminotransferase (ALT/SGPT) 50 U/L Alkaline Phosphatase 111 U/L SD-Yem-J-Type Natriuretic Peptide 509 pg/mL Total Protein 9.4 g/dL Albumin 4.2 g/dL Albumin/Globulin Ratio 0.8 Current Medications Medications (Trade) Dose Ordered Sig/Hui Route PRN Reason Start Time Stop Time Status Last Admin Dose Admin Ondansetron HCl (Zofran) 4 mg 1X ONCE IVP 09/21/21 11:00 09/21/21 11:05 DC 09/21/21 11:50 Multi-Ingredient Mouthwash/Gargle (Gi Cocktail) 20 ml 1X ONCE SWSW 09/21/21 11:00 09/21/21 11:05 DC 09/21/21 11:48 Sodium Chloride 1,000 ml @ 1,000 mls/hr 1X ONCE IV 09/21/21 11:00 09/21/21 11:59 DC 09/21/21 11:52 Vital Signs: Vital Signs Date Time Temp Pulse Resp B/P (MAP) Pulse Ox O2 Delivery O2 Flow Rate FiO2 09/21/21 10:21 97.9 58 18 195/96 (129) 100 Room Air 97.9 EKG: EKG: EKG performed at 1132 by ED nursing staff shows a sinus bradycardia at 46 bpm, KS interval 0.168, QTc interval 0.348, no acute STEMI, no ACS, no acute ischemia appreciated, EKG interpreted by ED attending physician Dr. Sol. Radiology/Procedures: Radiology/Procedures: [] Course & Med Decision Making: Course & Med Decision Making Pertinent Labs and Imaging studies reviewed. (See chart for details) 55-year-old male, vital signs reviewed, presents to the emergency department concerning nausea and vomiting with abdominal pain that started this morning. Physical examination is consistent with dyspepsia, patient's initial blood pressure 195/96, patient states he does not have hypertension however reports he has been given hypertension pills in the past. Will order IV saline lock, 1 L normal saline, IV Zofran, GI cocktail. Will order EKG, cardiac enzymes, tropo adrianne I, BNP NT pro, CBC, CMP, chest x-ray to rule out endorgan damage related to hypertensive presentation. Patient has refused chest x-ray, states he feels much better and just wants to sleep at this time. Other labs pending. Patient EKG nonconcerning for endorgan damage, patient's CBC and CMP nonconcerning for endorgan damage, specifically BUN and creatinine within normal limits, high-sensitivity troponin I within normal limits, BNP pro NT is 509, patient's blood pressure did normalize when medications given resolved patient's pain. Patient does report a history of bradycardia. Upon reevaluation of the patient, patient is sleeping in bed, patient easily arousable to verbal stimuli, reports that he feels much better now and is okay to go home. Patient is asking for food to eat. Discussed with patient diagnosis dyspepsia. Use of [id number] Maalox or Mylanta for returning discomfort, strict follow-up with primary care this week for reevaluation of ongoing abdominal discomforts, return to ER precautions and concerns. Patient gave verbal understanding of and is amenable to ED discharge planning. Discussed with the patient all findings and diagnostic testing as well as the need to follow-up with their primary care provider for further evaluation and treatment or return to the ED if any new or worsening symptoms. Strict return precautions were also discussed at length, the patient voiced understanding and agreement with the discharge planning. The patient was nontoxic in appearance, in no apparent distress, and hemodynamically stable at the time of disposition. Dragon Disclaimer: [employer] Disclaimer: This electronic medical record was generated, in whole or in part, using a voice recognition dictation system. Departure Departure Impression: Primary Impression: Dyspepsia Disposition: HOME / SELF CARE / HOMELESS Condition: GOOD Referrals: NO PCP (PCP) Patient Instructions: Indigestion Additional Instructions: You were seen today in the emergency department for abdominal pain with nausea vomiting. You were given 1 L of normal saline along with antinausea medication and a GI cocktail. You have reported you are symptoms have resolved and you feel much better now. Please consider using [id number] Maalox or Mylanta for any returning abdominal discomfort. Please follow-up with your primary care physician this week for ongoing management of your nausea and vomiting with abdominal pain symptoms. Please return to the emergency department for worsening symptoms or other concerns. Thank you for visiting our Emergency Department. It was a pleasure taking care of you today in the emergency department and we appreciate you trusting us with your care. If any additional problems come up don't hesitate to return to visit us. Please follow up with your primary care provider so they can plan additional care if needed and know about the problem that you had. If symptoms worsen come back to the Emergency Department. Any concerning symptoms that start such as chest pain, shortness of air, weakness or numbness on one side of the body, running high fevers or any other concerning symptoms return to the ER. PENELOPE COX APRN Sep 21, 2021 10:55
[2021-09-21] MEDS ORDERED: ONDANSETRON PF 4 MG/2 ML VIAL. IVP ONE (11:00)
[2021-09-21] MEDS ORDERED: LIDO:MAALOX 1:1 20 ML SINGLE DOSE. SWSW ONE ×2 (11:00→16:30)
[2021-09-21] MEDS ORDERED: IV NORMAL SALINE 1000ML BAG 1,000 ML IV ONE (11:00)
[2021-09-21 11:50] LABS: BASO % 0 % (0-3); EOS % 0 % (0-3); HEMATOCRIT 49.6 % (39.0-53.0); HEMOGLOBIN 16.8 g/dL (13.0-17.5); LYMPH # 0.9 x10^3/uL (1.0-4.8); LYMPH % 7 % (24-48); MEAN CORPUSCULAR HEMOGLOBIN 32 pg (25-35); MEAN CORPUSCULAR HGB CONC 34 g/dL (31-37); MEAN CORPUSCULAR VOLUME 96 fL (79-100); MONO # 0.7 x10^3/uL (0.0-1.1); MONO % 5 % (0-9); NEUT # 11.6 x10^3/uL (1.8-7.7); NEUT % 88 % (31-73); PLATELET COUNT 601 x10^3/uL (140-400); RED BLOOD COUNT 5.17 x10^6/uL (4.30-5.70); RED CELL DISTRIBUTION WIDTH 13.5 % (11.5-14.5); WHITE BLOOD COUNT 13.2 x10^3/uL (4.0-11.0)
[2021-09-21 12:45] LABS: BILIRUBIN,URINE NEGATIVE (NEG); CLARITY,URINE CLEAR; COLOR,URINE YELLOW; NITRITE,URINE NEGATIVE (NEG); PROTEIN,URINE >=300 mg/dL (NEG-TRACE); UROBILINOGEN,URINE 0.2 mg/dL (0.2 mg/dL)
[2021-09-21 13:07] LABS: AMORPHOUS SEDIMENT,UR PRESENT /HPF; BACTERIA,URINE 0 /HPF (0-FEW); RBC,URINE 0 /HPF (0-2)
[2021-09-21 13:15] LABS: CALCIUM 9.9 mg/dL (8.5-10.1); GFR 93.9; POTASSIUM 4.1 mmol/L (3.5-5.1)
[2021-09-21 13:21] LABS: ALBUMIN 4.2 g/dL (3.4-5.0); ALBUMIN/GLOBULIN RATIO 0.8 (1.0-1.7); TOTAL BILIRUBIN 0.3 mg/dL (0.2-1.0); TOTAL PROTEIN 9.4 g/dL (6.4-8.2)
[2021-09-21 13:31] VITALS: BP 134/74
[2021-09-21] MEDS ORDERED: ONDANSETRON ODT 4 MG TAB.RAPDIS. PO ONE (16:15)
[2021-09-21] MEDS ORDERED: LIDO:MAALOX 1:1 20 ML SINGLE DOSE. ONE (16:22)
--- NOTE | 2021-09-21 23:23 | EKG ---
[facility] [address] [place] [address] Test Date: 2021-09-21 Test Time: 11:32:49 Pat Name: YARA GORMAN Department: Room: Gender: [employer] Work[employer]: : 1965 Requested By: PENELOPE COX Order Number: [id number] Reading MD: Measurements Intervals [place] Rate: 46 P: 67 NV: 168 QRS: 80 QRSD: 90 T: 67 QT: 434 QTc: 384 Interpretive Statements SINUS BRADYCARDIA INCOMPLETE RIGHT BUNDLE BRANCH BLOCK QRS(T) CONTOUR ABNORMALITY CONSIDER ANTEROSEPTAL MYOCARDIAL DAMAGE POSSIBLY ABNORMAL ECG RI6.01 No previous ECG available for comparison
== END 2021-09-21 16:25 | disposition home or self-care (01) ==
LOC: ER 09:59
DX: R10.13 Epigastric pain (principal); R11.2 Nausea with vomiting, unspecified; I10 Essential (primary) hypertension; F17.200 Nicotine dependence, unspecified, uncomplicated; Z86.73 Personal history of transient ischemic attack (TIA), and cerebral infarction without residual deficits
CPT/HCPCS: 36415; 80053; 81001; 83880; 85025; 93005; 96361; 96374; 99285; J2405; J7030